=== PATIENT | male | born 1960 ===

== ENCOUNTER 2018-12-02 10:34 | Inpatient (IN) | payer OTHER ==
[~2018-12-02] VITALS: Ht 182.9 cm; Wt 88.3 kg
[2018-12-02] MEDS ORDERED: EUTHYROX175 MCG PO (10:54)
[2018-12-02 11:14] LABS: BASOPHILS ABSOLUTE AUTO 0.04 K/mm3 (0.00-0.23); BASOPHILS PERCENT AUTO 0 % (0-2); EOSINOPHILS ABSOLUTE AUTO 0.11 K/mm3 (0.00-0.68); EOSINOPHILS PERCENT AUTO 1 % (0-6); Hematocrit 47.3 % (37.0-53.0); Hemoglobin 15.4 g/dL (13.5-17.5); IMMATURE GRAN ABSOLUTE AUTO 0.05 K/mm3 (0.00-0.10); IMMATURE GRAN PERCENT AUTO 0 % (0-1); LYMPHOCYTES ABSOLUTE AUTO 1.82 K/mm3 (0.84-5.20); LYMPHOCYTES PERCENT AUTO 15 % (21-46); MONOCYTES ABSOLUTE AUTO 0.83 K/mm3 (0.16-1.47); MONOCYTES PERCENT AUTO 7 % (4-13); Mean Corpuscular HGB 32.4 pg (26.0-34.0); Mean Corpuscular HGB Conc 32.6 g/dL (31.5-36.5); Mean Corpuscular Volume 99 fL (80-100); Mean Platelet Volume 10.6 fL (9.1-12.4); NEUTROPHILS ABSOLUTE AUTO 9.38 K/mm3 (1.96-9.15); NEUTROPHILS PERCENT AUTO 77 % (41-73); Platelet Count 239 K/mm3 (150-400); RDW Coefficient Variation 13.1 % (11.7-14.2); Red Blood Cell Count 4.76 M/mm3 (4.30-5.90); White Blood Cell Count 12.23 K/mm3 (4.00-11.30)
[2018-12-02 11:49] LABS: Influenza A Negative (NEGATIVE); Influenza B Negative (NEGATIVE)
[2018-12-02 12:07] LABS: Alanine Aminotransfer (ALT/SGP 21 U/L (12-78); Albumin, Blood 3.5 g/dL (3.4-5.0); Albumin/Globulin Ratio 0.9 (0.8-1.8); Alk Phos 73 U/L (50-136); Anion Gap 8 mmol/L (6-16); Aspartate Aminotrans (AST/SGOT 14 U/L (12-37); Bilirubin, Total 0.5 mg/dL (0.1-1.0); Blood Urea Nitrogen 13 mg/dL (8-24); Bun/Creatinine Ratio 18.1 (12.0-20.0); CO2, Blood 24 mmol/L (21-32); Calcium, Blood 8.5 mg/dL (8.5-10.1); Chloride, Blood 108 mmol/L (98-108); Creatinine, Blood 0.72 mg/dL (0.60-1.20); Ethanol (Alcohol), Blood, Med <3 mg/dL; Globulin, Blood 3.7 g/dL (2.2-4.0); Glomerular Filtration Rate >60 (60-); Glucose, Blood 102 mg/dL (70-99); Potassium, Blood 4.2 mmol/L (3.5-5.5); Sodium, Blood 140 mmol/L (136-145); Total Protein, Blood 7.2 g/dL (6.4-8.2)
[2018-12-02 14:00] LABS: Thyroid Stimulating Hormone 0.622 uIU/mL (0.360-4.800)
--- NOTE | 2018-12-02 20:02 | NUR ---
SHIFT SUMMARY PATIENT A&O TO SELF, FAMILY, AND PLACE. DOES NOT KNOW WHAT YEAR IT IS. ADMITTED TO FLOOR AT 1800. REPORT GIVEN TO ONCOMING RN.
--- NOTE | 2018-12-03 04:46 | NUR ---
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 OTHER NEURO SIGNS WNL. UP WITH ASSIST TO THE BATHROOM AND GAIT MORE STEADY THAN IT WAS EARLIER WHEN HE DID STUMBLE SEVERAL TIMES. FALL PRECAUTIONS. HX OF TOBACCO AND ETOH USE BUT PT MINIMIZES USE. SAYS HE HAS 1 GLASS OF WINE SEVERAL NIGHTS A WEEK AND MAY SMOKE UP TO 4 CIGARETTES 5 TIM[address] AND CTA OF BRAIN. NO ACUTE CVA BUT 1 OCCLUDED AREA NOTED WITH COLLATERAL FLOW. SPOUSE AND SON IN EARLIER SUPPORTIVE. ON IV FLUID, RESP PANEL SENT.
[2018-12-03 06:24] LABS: Adenovirus Not Detected (NOT DETECT); Bordetella pertussis Not Detected (NOT DETECT); Chlamydophila pneumoniae Not Detected (NOT DETECT); Coronavirus 229E Not Detected (NOT DETECT); Coronavirus HKU1 Not Detected (NOT DETECT); Coronavirus NL63 Not Detected (NOT DETECT); Coronavirus OC43 Not Detected (NOT DETECT); Human Metapneumovirus Not Detected (NOT DETECT); Human Rhinovirus/Enterovirus Not Detected (NOT DETECT); Influenza A Not Detected (NOT DETECT); Influenza A/2009-H1 Not Detected (NOT DETECT); Influenza A/H1 Not Detected (NOT DETECT); Influenza A/H3 Not Detected (NOT DETECT); Influenza B Not Detected (NOT DETECT); Mycoplasma pneumoniae Not Detected (NOT DETECT); Parainfluenza Virus 1 Not Detected (NOT DETECT); Parainfluenza Virus 2 Not Detected (NOT DETECT); Parainfluenza Virus 3 Not Detected (NOT DETECT); Parainfluenza Virus 4 Not Detected (NOT DETECT); Respiratory Syncytial Virus Not Detected (NOT DETECT)
[2018-12-03 07:26] LABS: Hematocrit 43.7 % (37.0-53.0); Hemoglobin 14.3 g/dL (13.5-17.5); Mean Corpuscular HGB 32.5 pg (26.0-34.0); Mean Corpuscular HGB Conc 32.7 g/dL (31.5-36.5); Mean Corpuscular Volume 99 fL (80-100); Mean Platelet Volume 10.1 fL (9.1-12.4); Platelet Count 243 K/mm3 (150-400); RDW Coefficient Variation 13.2 % (11.7-14.2); RDW Standard Deviation 48.2 fL (35.1-46.3); White Blood Cell Count 10.15 K/mm3 (4.00-11.30)
--- NOTE | 2018-12-03 11:11 | NUR ---
refused shower stating that he will be going home today, will try again after lunch
--- NOTE | 2018-12-03 14:47 | NUR ---
Adance Directive Education Attempted. As I enetered the patient's room it was very busy, with family, patient's nurse and not long after I entered the room patient's doctor was waiting and then other ancilary services behind the doctor. I briefly stumbled through a discription of the the advance directive and patient's nurse stepped in to help fill in some gaps. I could tell the patient had no interest and the family just looked confused so I stepped aside and letting the doctor speak to the patient. I remain available to patient and family.
--- NOTE | 2018-12-03 18:49 | NUR ---
SHIFT SUMMARY PATIENT CONTINUES TO NOT REMEMBER CURRENT DATE. HE DOES NOT REMEMBER EVENTS LEADING UP TO STROKE OR THE ACUTUAL STROKE OR TIME SPENT IN HOSPITAL. IS AT BEDSIDE. FAMILY IN FREQUENTLY. SBA TO BATHROOM DUE TO UNSTEADY GAIT. FAMILY AND PATIENT ABLE TO MAKE NEEDS KNOWN. TELE MONITOR ON AND IN PLACE.
[2018-12-03] MEDS ORDERED: ASPI81CH PO (19:48)
[2018-12-03] MEDS ORDERED: ATOR80 PO (19:48)
[2018-12-03] MEDS ORDERED: CLOP75 PO (19:49)
[2018-12-03] MEDS ORDERED: THERA M PLUS T1 EACH PO (19:50)
== END 2018-12-03 20:02 | disposition home or self-care (01) | DRG 66 ==
LOC: ER 10:34 → ERHOLD 10:35 → MEDS 10:35
PROVIDERS: Emergency Medicine; ADMIT Internal Medicine
DX: I63.89 Other cerebral infarction (principal); R41.0 Disorientation, unspecified; E03.9 Hypothyroidism, unspecified; F17.210 Nicotine dependence, cigarettes, uncomplicated; D72.829 Elevated white blood cell count, unspecified
CPT/HCPCS: 36415; 70450; 70496; 70551; 71046; 80053; 82140; 82607; 82746; 83036; 84443; 85025; 85027; 87486; 87581; 87633; 87798; 87804; 93306; 96360; 96361; 96372; 96372-59; 97116; 97162; 97166; 97530; 99285-25; G0378; G0480; J1650; J7030; Q9967

== ENCOUNTER → 2021-01-10 | Outpatient (CLI) | payer OTHER ==
[~2021-01-10] MED LIST: ASPI81CH PO; ATOR80 PO; CLOP75 PO; EUTHYROX175 MCG PO; THERA M PLUS T1 EACH PO
== END | disposition home or self-care (01) ==
LOC: LAB SHORT 15:51 → LAB 15:51
DX: D17.1 Benign lipomatous neoplasm of skin and subcutaneous tissue of trunk (principal)
CPT/HCPCS: 88305

== ENCOUNTER 2022-11-26 10:43 | Day surgery (SDC) | payer OTHER ==
[~2022-11-26] VITALS: Ht 182.9 cm; Wt 82.8 kg
== END 2022-11-26 13:13 | disposition home or self-care (01) ==
LOC: ORSCSDS 10:43
PROVIDERS: Internal Medicine Gastroenterology
PROC: 0DBP8ZX Excision of Rectum, Via Natural or Artificial Opening Endoscopic, Diagnostic (ICD-10-PCS; principal; 2022-11-26 12:00)
PROC: 0DBL8ZX Excision of Transverse Colon, Via Natural or Artificial Opening Endoscopic, Diagnostic (ICD-10-PCS; principal; 2022-11-26 12:00)
DX: Z12.11 Encounter for screening for malignant neoplasm of colon (principal); D12.3 Benign neoplasm of transverse colon; K63.5 Polyp of colon; Z87.891 Personal history of nicotine dependence; K57.30 Diverticulosis of large intestine without perforation or abscess without bleeding; K64.8 Other hemorrhoids; Z79.899 Other long term (current) drug therapy
CPT/HCPCS: 88305; J2704; J7120